=== PATIENT | male | born 1955 | race Caucasian/White ===

== ENCOUNTER 2021-05-25 03:12 | Emergency (ER) | payer MEDICARE, MEDICAID ==
[2021-05-25] MEDS ORDERED: Metoprolol Tartrate 5 MG/5 ML SDV ONE (03:27)
[2021-05-25] MEDS ORDERED: Metoprolol Tartrate 25 MG Tab ONE (03:27)
[2021-05-25 07:40] LABS: CORONAVIRUS COVID-19 NAA NEGATIVE (NEGATIVE)
--- NOTE | 2021-05-25 09:13 | CR ---
CHEST: 2 view CLINICAL HISTORY:Chest pain COMPARISON:None FINDINGS: The lungs are emphysematous. There is some scarring at the lung bases. The heart size, pulmonary vascularity and hilar structures are normal. No infiltrate effusion or pneumothorax is seen. IMPRESSION: No acute cardiopulmonary process Moderate emphysematous changes .
--- NOTE | 2021-05-25 17:45 | EDM.PDOC ---
ED HPI GENERAL MEDICAL PROBLEM - General Chief Complaint: ENT Problem Stated Complaint: COUGH Time Seen by Provider: 05/25/21 03:15 Source of Information: Reports: Patient, EMS History Limitations: Reports: No Limitations - History of Present Illness INITIAL COMMENTS - FREE TEXT/NARRATIVE: 66-year-old male arrives by EMS after waking up tonight with blood in his mouth and bleeding from the right nares. He spit out a bunch of blood and it scared him so he called the ambulance. This gentleman has not had medical care for years, he has a large abdominal hernia, both some chronic back issues, and has an enlarging lesion on the tip of his nose. The bleeding was controlled when he arrived to the emergency room but his blood pressure was 240/140. He was somewhat anxious, not complaining of any chest pain, shortness of breath, recent trauma or fever. Onset: Sudden (Bleeding started fairly suddenly about an hour ago) Associated Symptoms: Reports: Cough (Chronic smoker's cough, nonproductive), Malaise. Denies: Chest Pain, Fever/Chills, Shortness of Breath Treatments [employer]: Reports: See EMS Report ED ROS GENERAL - Review of Systems Review Of Systems: See Below Constitutional: Denies: Fever, Chills HEENT: Reports: Other (Bleeding from the mouth and nose, unknown source. Extremely poor dentition and advanced dental caries does not seek dental care) Respiratory: Reports: Cough. Denies: Shortness of Breath, Sputum Cardiovascular: Denies: Chest Pain, Palpitations GI/Abdominal: Reports: Other (Chronic large left lower abdominal hernia, basically asymptomatic) : Reports: No Symptoms Musculoskeletal: Reports: Back Pain (Intermittent chronic back pain) Skin: Reports: Other (Lesion on the tip of his nose that has been growing over the past 2 years, also a chronic small cyst on the right lateral lower lip) Neurological: Denies: Dizziness, Headache, Syncope, Weakness Psychiatric: Reports: Anxiety ED EXAM, GENERAL - Physical Exam Exam: See Below Exam Limited By: No Limitations General Appearance: Alert, No Apparent Distress, Other (No active bleeding at this time) Eye Exam: Bilateral Eye: Normal Inspection Nose: Other (Dried blood in the right nares, the left is clear) Throat/Mouth: Other (Advanced dental decay is diffuse, dried blood is in the mouth on the tongue and lips, no active bleeding seen) Respiratory/Chest: No Respiratory Distress, Lungs Clear, Decreased Breath Sounds (Diffuse decreased breath sounds but no abnormal breath sounds) Cardiovascular: Regular Rate, Rhythm, Systolic Murmur (Faint systolic murmur), E xtra Beats (Occasional ectopic beats) GI/Abdominal: Soft, Other (Large left lower abdominal hernia, not tender to palpation. Bowel movement can be felt within the hernia) Extremities: Normal Inspection. No: Pedal Edema Neurological: Alert, Oriented, No Motor/Sensory Deficits Psychiatric: Anxious Skin Exam: Warm, Dry, Other (There is a 1.5 cm round raised dark nontender lesion on the tip of his nose which appears possibly malignant. There is a small inclusion cyst on the lateral right lip which is nontender) Course - Orders/Labs/Meds Labs: Laboratory Tests 05/25/21 05/25/21 05/25/21 Range/Units 03:00 03:00 03:00 WBC 7.5 (4.5-11.0) K/uL RBC 4.61 (4.30-5.90) M/uL Hgb 15.2 H (12.0-15.0) g/dL Hct 44.3 (40.0-54.0) % MCV 96 (80-98) fL MCH 33 H (27-31) pg MCHC 34 (32-36) % Plt Count 238 (150-400) K/uL Sodium 140 (140-148) mmol/L Potassium 3.7 (3.6-5.2) mmol/L Chloride 102 (100-108) mmol/L Carbon Dioxide 27 (21-32) mmol/L Anion Gap 10.8 (5.0-14.0) mmol/L BUN 16 (7-18) mg/dL Creatinine 1.1 (0.8-1.3) mg/dL Est Cr Clr Drug Dosing TNP Estimated GFR (MDRD) > 60 (>60) Glucose 110 H (74-106) mg/dL Calcium 8.9 (8.5-10.1) mg/dL Total Bilirubin 0.8 (0.2-1.0) mg/dL AST 49 H (15-37) U/L ALT 51 (12-78) U/L Alkaline Phosphatase 82 (46-116) U/L Total Protein 8.0 (6.4-8.2) g/dL Albumin 3.2 L (3.4-5.0) g/dL Globulin 4.8 H (2.3-3.5) g/dL Albumin/Globulin Ratio 0.7 L (1.2-2.2) Influenza Type A RNA Negative (NEGATIVE) RSV RNA (INAAT) Negative (NEGATIVE) Influenza Type B RNA Negative (NEGATIVE) SARS-CoV-2 RNA (CHASE) Negative (NEGATIVE) Meds: Medications Discontinued Medications Generic Name Dose Route Start Last Admin Trade Name Ruby PRN Reason Stop Dose Admin Metoprolol Tartrate Confirm 05/25/21 03:27 Metoprolol Tartrate 25 Mg Tab Administered 05/25/21 03:28 Dose 25 mg .ROUTE .STK-MED ONE Metoprolol Tartrate Confirm 05/25/21 03:27 Metoprolol Tartrate 5 Mg/5 Ml Sdv Administered 05/25/21 03:28 Dose 5 mg .ROUTE .STK-MED ONE - Re-Assessments/Exams Free Text/Narrative Re-Assessment/Exam: 05/25/21 17:44 Attempted to wash the patient's mouth out as good as possible and I could not see any source of bleeding. There was no active bleeding from the right nares as well. Blood pressure normalized somewhat to 180/110 without treatment. Again this patient is not seeking medical care in years. An IV was started, he was given 5 mg of IV metoprolol and 25 mg of metoprolol tartrate. CBC, CMP, chest x-ray was obtained as well as a Covid 4 Plex viral study. 05/25/21 17:45 Chest x-ray returned showing emphysematous changes but no acute findings. 05/25/21 17:45 CBC and CMP were generally normal. Blood pressure continued to normalize to 146/100. Patient was monitored for 2 hours and did not have any recurring bleeding. 05/25/21 17:46 Patient was discharged with a prescription of metoprolol 25 mg twice daily for 2 weeks. I would like him to make an appointment with Tami Sosa to get a good physical, consultation for the lesion on his nose and a blood pressure follow- up. He was also given a nasal pincher to use for external pressure if bleeding recurs. Departure - Departure Time of Disposition: 07:21 Disposition: Home, Self-Care 01 Clinical Impression: Epistaxis Hypertension Qualifiers: Hypertension type: primary hypertension Qualified Code(s): I10 - Essential (primary) hypertension - Discharge Information Instructions: Managing Your Hypertension Referrals: PCP,Unknown [Primary Care Provider] - Forms: ED Department Discharge Care Plan Goals: You need to recheck with a regular provider, I would recommend Tami Sosa over at the clinic. The lesion on your nose needs to be rechecked, your blood pressure needs to be rechecked. In a more thorough oral exam when the mouth is clean is needed. It is likely that this nosebleed led to bleeding in your mouth but there still may be another source that is yet to be identified. Please make an appointment at the clinic to be seen in the near future before your blood pressure medicine runs out. Return anytime if worsening, bleeding recurs and cannot be stopped or you develop other concerns.
== END 2021-05-25 07:21 | disposition home or self-care (01) ==
LOC: JP.ED 03:12
DX: R04.0 Epistaxis (principal); I10 Essential (primary) hypertension; Z20.822 Contact with and (suspected) exposure to COVID-19
CPT/HCPCS: 0241U; 36415; 71046; 80053; 85027; 99284

== ENCOUNTER 2021-06-01 22:16 | Emergency (ER) | payer MEDICARE, MEDICAID ==
[2021-06-01 23:32] LABS: CORONAVIRUS COVID-19 NAA NEGATIVE (NEGATIVE)
[2021-06-01] MEDS ORDERED: Albuterol/Ipratropium 3.0-0.5 MG/3 ML Neb Soln NEB ONE (23:49)
--- NOTE | 2021-06-01 23:51 | EDM.PDOC ---
ED HPI GENERAL MEDICAL PROBLEM - General Chief Complaint: Respiratory Problem Stated Complaint: MEDICAL VIA [facility] Time Seen by Provider: 06/01/21 23:45 Source of Information: Reports: Patient, RN Notes Reviewed History Limitations: Reports: No Limitations - History of Present Illness INITIAL COMMENTS - FREE TEXT/NARRATIVE: 66-year-old gentleman presents emergency department today complaint of shortness of breath. He states his been having lots of nasal drainage and sinus congestion but over the last 24 hours is gotten particularly worse in the point where now he will feel short of breath. He is not had any fevers no nausea vomiting no chest pain. He does have a extensive tobacco history recently quit smoking a couple of days ago because it was so hard to breathe - Related Data Allergies Allergy/AdvReac Type Severity Reaction Status Date / Time No Known Allergies Allergy Verified 06/01/21 22:28 Home Meds: Home Meds Metoprolol Tartrate 25 mg PO BID 06/01/21 [History] Past Medical History HEENT History: Reports: Impaired Vision Cardiovascular History: Reports: Hypertension Genitourinary History: Reports: Other (See Below) Other Genitourinary History: self cath Musculoskeletal History: Reports: Other (See Below) Other Musculoskeletal History: spinal cord injury 1989 - some leg weakness - Infectious Disease History Infectious Disease History: Reports: Chicken Pox, Measles, MRSA, Mumps - Past Surgical History HEENT Surgical History: Reports: Cataract Surgery GI Surgical History: Reports: Other (See Below) Other GI Surgeries/Procedures: splenectomy Social & Family History - Tobacco Use Tobacco Use Status *Q: Former Tobacco User Years of Tobacco use: 45 Packs/Tins Daily: 1 Used Tobacco, but Quit: Yes Month/Year Tobacco Last Used: 05/30/2021 - Caffeine Use Caffeine Use: Reports: Soda - Recreational Drug Use Recreational Drug Use: Yes Recreational Drug Type: Reports: Marijuana/Hashish ED ROS GENERAL - Review of Systems Review Of Systems: See Below Constitutional: Denies: Fever, Chills HEENT: Reports: No Symptoms Respiratory: Reports: Shortness of Breath, Cough, Sputum Cardiovascular: Reports: Dyspnea on Exertion. Denies: Chest Pain GI/Abdominal: Reports: No Symptoms ED EXAM, GENERAL - Physical Exam Exam: See Below Exam Limited By: No Limitations General Appearance: Alert, WD/WN, No Apparent Distress Respiratory/Chest: No Respiratory Distress, Chest Non-Tender, Decreased Breath Sounds, Rales, Rhonchi Cardiovascular: Regular Rate, Rhythm, No Murmur Course - Vital Signs Last Recorded V/S: Last Vital Signs Temp 98.1 F 06/01/21 22:54 Pulse 65 06/01/21 22:54 Resp 18 06/01/21 22:54 BP 190/96 H 06/01/21 22:54 Pulse Ox 97 06/01/21 22:54 - Orders/Labs/Meds Orders: Active Orders 24 hr Category Date Time Status RT Aerosol Therapy [RC] ASDIRECTED Care 06/01/21 23:49 Active Chest 2V [CR] Urgent Exams 06/02/21 00:20 Taken Isolation [COMM] Stat Oth 06/01/21 22:39 Ordered Labs: Laboratory Tests 06/01/21 06/01/21 06/01/21 Range/Units 22:51 23:55 23:55 WBC 10.4 (4.5-11.0) K/uL RBC 4.55 (4.30-5.90) M/uL Hgb 14.9 (12.0-15.0) g/dL Hct 43.2 (40.0-54.0) % MCV 95 (80-98) fL MCH 33 H (27-31) pg MCHC 35 (32-36) % Plt Count 198 (150-400) K/uL Neut % (Auto) 80.3 H (36-66) % Lymph % (Auto) 11.8 L (24-44) % Hitchcock % (Auto) 7.4 H (2-6) % Eos % (Auto) 0.1 L (2-4) % Baso % (Auto) 0.4 (0-1) % Sodium (140-148) mmol/L Potassium (3.6-5.2) mmol/L Chloride (100-108) mmol/L Carbon Dioxide (21-32) mmol/L Anion Gap (5.0-14.0) mmol/L BUN (7-18) mg/dL Creatinine (0.8-1.3) mg/dL Est Cr Clr Drug Dosing mL/min Estimated GFR (MDRD) (>60) Glucose (74-106) mg/dL Lactic Acid (0.4-2.0) mmol/L Calcium (8.5-10.1) mg/dL Troponin I High Sens 23.9 (<=60.3) pg/mL Influenza Type A RNA Negative (NEGATIVE) RSV RNA (INAAT) Negative (NEGATIVE) Influenza Type B RNA Negative (NEGATIVE) SARS-CoV-2 RNA (CHASE) Negative (NEGATIVE) 06/01/21 06/01/21 Range/Units 23:55 23:55 WBC (4.5-11.0) K/uL RBC (4.30-5.90) M/uL Hgb (12.0-15.0) g/dL Hct (40.0-54.0) % MCV (80-98) fL MCH (27-31) pg MCHC (32-36) % Plt Count (150-400) K/uL Neut % (Auto) (36-66) % Lymph % (Auto) (24-44) % Hitchcock % (Auto) (2-6) % Eos % (Auto) (2-4) % Baso % (Auto) (0-1) % Sodium 136 L (140-148) mmol/L Potassium 4.2 (3.6-5.2) mmol/L Chloride 102 (100-108) mmol/L Carbon Dioxide 28 (21-32) mmol/L Anion Gap 10.2 (5.0-14.0) mmol/L BUN 27 H D (7-18) mg/dL Creatinine 1.2 (0.8-1.3) mg/dL Est Cr Clr Drug Dosing 52.92 mL/min Estimated GFR (MDRD) > 60 (>60) Glucose 99 (74-106) mg/dL Lactic Acid 1.3 (0.4-2.0) mmol/L Calcium 8.6 (8.5-10.1) mg/dL Troponin I High Sens (<=60.3) pg/mL Influenza Type A RNA (NEGATIVE) RSV RNA (INAAT) (NEGATIVE) Influenza Type B RNA (NEGATIVE) SARS-CoV-2 RNA (CHASE) (NEGATIVE) Meds: Medications Discontinued Medications Generic Name Dose Route Start Last Admin Trade Name Freq PRN Reason Stop Dose Admin Albuterol/Ipratropium 3 ml 06/01/21 23:49 06/01/21 23:58 Albuterol/Ipratropium 3.0-0.5 Mg/3 Ml Neb Soln NEB 06/01/21 23:50 3 ml ONETIME ONE Administration Departure - Departure Time of Disposition: 00:54 Disposition: Home, Self-Care 01 Condition: Fair Clinical Impression: Community acquired pneumonia Qualifiers: Laterality: right Lung location: lower lobe of lung Qualified Code(s): J18.9 - Pneumonia, unspecified organism - Discharge Information Instructions: Community-Acquired Pneumonia, Adult, [id number] Referrals: PCP,Unknown [Primary Care Provider] - Forms: ED Department Discharge Additional Instructions: Take full course of antibiotics take full course of prednisone, use your albuterol inhaler as needed for shortness of breath symptoms, please followup with your primary care provider in 2-3 days if not better, please call return to the emergency department with worsening of symptoms. Sepsis Event Note (ED) - Evaluation Sepsis Screening Result: No Definite Risk - Focused Exam Vital Signs: Vital Signs Temp Pulse Resp BP Pulse Ox 06/01/21 22:54 98.1 F 65 18 190/96 H 97 06/01/21 22:18 94 26 H 94 L - My Orders Last 24 Hours: My Active Orders 06/01/21 22:39 Isolation [COMM] Stat 06/01/21 23:49 RT Aerosol Therapy [RC] ASDIRECTED 06/02/21 00:20 Chest 2V [CR] Urgent - Assessment/Plan Last 24 Hours: My Active Orders 06/01/21 22:39 Isolation [COMM] Stat 06/01/21 23:49 RT Aerosol Therapy [RC] ASDIRECTED 06/02/21 00:20 Chest 2V [CR] Urgent Plan: Assessment Acuity = acute Site and laterality = community-acquired pneumonia right lower lobe Etiology = probable bacterial cause Manifestations = dyspnea Location of injury = Home Lab values = CBC CMP unremarkable Covid was negative however the chest x-ray does show an increase in opacity in the right lower lobe official read radiologist pending Plan Review his curb 65 score is 2 puts him at moderate risk he is able to follow-up with his primary care in the next 2 to 3 days for reevaluation, start doxycycline 100 mg p.o. twice daily x7 days short course of prednisone 20 mg once a day for 5 days and an albuterol inhaler This note was dictated using [employer] voice recognition software please call with any questions on syntax or grammar.
--- NOTE | 2021-06-04 10:27 | CR ---
CHEST: 2 view CLINICAL HISTORY:SOB COMPARISON:05/25/2021 FINDINGS: Heart size and pulmonary vascularity are normal. There are atherosclerotic changes in the aorta. Lungs are emphysematous. There is patchy infiltrate in the right lower lobe. There is some increase in lung markings in the left lower lobe There are small bibasal effusions which are new since prior study. Impression: Moderate emphysematous changes New bilateral lower lobe infiltrates right greater than left Small bibasal effusions
== END 2021-06-02 07:20 | disposition home or self-care (01) ==
LOC: JP.ED 22:16
DX: J18.9 Pneumonia, unspecified organism (principal); I10 Essential (primary) hypertension; Z87.891 Personal history of nicotine dependence; Z20.822 Contact with and (suspected) exposure to COVID-19
CPT/HCPCS: 0241U; 36415; 71046; 80048; 83605; 84484; 85025; 94640; 99285; J7620-GY